=== PATIENT | female | born 1935 | race Caucasian/White ===

== ENCOUNTER 2017-02-20 07:15 | Emergency (ER) | payer MEDICARE, BC ==
[2017-02-20] MEDS ORDERED: MORPHINE SULFATE 10 MG/ML SOL IV ONE (07:41)
[2017-02-20] MEDS ORDERED: MORPHINE SULFATE 10 MG/ML SOL ONE (07:53)
[2017-02-20 07:59] LABS: BASOPHILS % (AUTO) 1 % (0-3); EOSINOPHILS % (AUTO) 8 % (0-9); HEMATOCRIT 43 % (35-47); MEAN CORPUSCULAR HGB CONC 32.8 gm/dl (32.0-36.0); MEAN CORPUSCULAR VOLUME 95 fL (81-99); MONOCYTES % (AUTO) 11.5 % (0-12); NEUTROPHILS % (AUTO) 56.1 % (37-80)
[2017-02-20 08:07] LABS: APPEARANCE,URINE Clear; BILIRUBIN,URINE NEGATIVE (NEGATIVE); COLOR,URINE Yellow; GLUCOSE, URINE (UA) NEGATIVE (NEGATIVE); KETONES,URINE NEGATIVE (NEGATIVE); LEUKOCYTE ESTERASE ,URINE NEGATIVE (NEGATIVE); NITRATE,URINE NEGATIVE (NEGATIVE); OCCULT BLOOD,URINE NEGATIVE (NEG-TRACE); UROBILINOGEN,URINE 0.2 (0.2-1.0 EU)
[2017-02-20 08:12] LABS: ALBUMIN 3.6 gm/dl (3.4-5.0); CALCIUM 9.9 mg/dl (8.5-10.1)
[2017-02-20 08:18] LABS: RBC,URINE NEG (0-3AV/HPF); WBC,URINE 0-1 (0-5AV/HPF)
[2017-02-20 08:43] VITALS: RESP 18; TEMP 98.8; O2SAT 95
[2017-02-20] MEDS ORDERED: SODIUM CHLORIDE 0.9% 1000ML 1,000 ML IV SCH (09:15)
[2017-02-20 09:30] VITALS: PULSE 79
[2017-02-20 09:50] VITALS: BP 113/80
== END 2017-02-20 10:53 | disposition short-term general hospital (02) | DRG 536 ==
LOC: ED 07:15
DX: S72.141A Displaced intertrochanteric fracture of right femur, initial encounter for closed fracture (principal); W01.0XXA Fall on same level from slipping, tripping and stumbling without subsequent striking against object, initial encounter
CPT/HCPCS: 36415; 72170; 73502; 80053; 81001; 85025; 99285; J2270

== ENCOUNTER 2017-03-22 09:53 | Outpatient (CLI) | payer MEDICARE, BC ==
[2017-02-20 08:43] VITALS: O2SAT 95
== END 2017-03-22 09:54 | disposition home or self-care (01) | DRG 561 ==
LOC: CONVCARE 09:53
PROVIDERS: ATTEND Orthopaedic Surgery
DX: S72.101D Unspecified trochanteric fracture of right femur, subsequent encounter for closed fracture with routine healing (principal)
CPT/HCPCS: 73502

== ENCOUNTER 2017-07-22 08:00 | Outpatient (CLI) | payer MEDICARE, BC ==
[2017-07-19 11:39] VITALS: O2SAT 98
== END 2017-07-22 08:01 | disposition home or self-care (01) | DRG 561 ==
LOC: CONVCARE 08:00
PROVIDERS: ATTEND Orthopaedic Surgery
DX: S72.141D Displaced intertrochanteric fracture of right femur, subsequent encounter for closed fracture with routine healing (principal)
CPT/HCPCS: 73502

== ENCOUNTER 2017-09-06 11:58 | Inpatient (IN) | payer MEDICARE, BC ==
[2017-09-06] MEDS ORDERED: SODIUM CHLORIDE 0.9% 500 ML 1,000 ML IV ONE (12:42)
[2017-09-06] MEDS: SODIUM CHLORIDE 0.9% FLUSH 10 ML SOL IV SCH ×2 (13:00→22:38)
[2017-09-06] MEDS: SODIUM CHLORIDE 0.9% 1000ML 1,000 ML IV SCH ×2 (15:10→18:37)
[2017-09-06] MEDS ORDERED: ENOXAPARIN 30 MG SOL SC SCH (16:30)
[2017-09-06] MEDS ORDERED: ACETAMINOPHEN 500 MG 500 MG TAB PO PRN (17:34)
[2017-09-06] MEDS ORDERED: TRAMADOL HYDROCHLORIDE 50 MG TAB PO PRN (17:34)
[2017-09-06] MEDS ORDERED: MAGNESIUM HYDROXIDE 30 ML SUS PO PRN (17:34)
[2017-09-06] MEDS ORDERED: MONTELUKAST SODIUM 10 MG TAB ONE (20:59)
[2017-09-06] MEDS ORDERED: MIRTAZAPINE 15 MG TAB PO SCH (21:00)
[2017-09-06] MEDS ORDERED: OXYBUTYNIN ER 15MG TER PO SCH (21:00)
[2017-09-06] MEDS ORDERED: MONTELUKAST SODIUM 5 MG CTB PO SCH (21:00)
[2017-09-06] MEDS ORDERED: LEVOTHYROXINE SODIUM 50 MCG TAB PO SCH (21:00)
[2017-09-06] MEDS: TRAMADOL HYDROCHLORIDE 50 MG TAB PO SCH (21:22)
[2017-09-06] MEDS: ACETAMINOPHEN 500 MG 500 MG TAB PO SCH (21:22)
[2017-09-06] MEDS: DOXYCYCLINE 100 MG TAB PO SCH (21:22)
[2017-09-06] MEDS: AMLODIPINE 5 MG TAB PO SCH (21:22)
[2017-09-06 23:54] VITALS: RESP 20
[2017-09-07] MEDS: SODIUM CHLORIDE 0.9% 1000ML 1,000 ML IV SCH ×2 (00:42→06:33)
[2017-09-07] MEDS: SODIUM CHLORIDE 0.9% FLUSH 10 ML SOL IV SCH ×2 (06:33→12:30)
[2017-09-07] MEDS ORDERED: LEVOTHYROXINE SODIUM 50 MCG TAB PO SCH (07:00)
[2017-09-07 07:24] LABS: BASOPHILS % (AUTO) 1 % (0-3); EOSINOPHILS % (AUTO) 1 % (0-9); HEMATOCRIT 32 % (35-47); MEAN CORPUSCULAR HGB CONC 35.3 gm/dl (32.0-36.0); MEAN CORPUSCULAR VOLUME 91 fL (81-99); MONOCYTES % (AUTO) 7.6 % (0-12); NEUTROPHILS % (AUTO) 73.4 % (37-80)
[2017-09-07 07:31] LABS: CALCIUM 8.3 mg/dl (8.5-10.1); POTASSIUM 4.5 mMol/L (3.5-5.1)
[2017-09-07] MEDS ORDERED: SODIUM CHLORIDE 0.9% 1000ML 1,000 ML IV SCH (08:17)
[2017-09-07] MEDS ORDERED: ATENOLOL 25 MG TAB PO SCH (09:00)
[2017-09-07] MEDS ORDERED: POLYETHYLENE GLYCOL 17 GM/1 TBS PDS PO SCH (09:00)
[2017-09-07] MEDS ORDERED: CETIRIZINE HYDROCHLORIDE 10 MG TAB PO SCH (09:00)
[2017-09-07] MEDS ORDERED: NICOTINE 7 MG PATCH TD SCH (09:00)
[2017-09-07] MEDS ORDERED: PANTOPRAZOLE SODIUM 40 MG ECT PO SCH (09:00)
[2017-09-07] MEDS ORDERED: ENOXAPARIN 30 MG SOL SC SCH (09:00)
[2017-09-07] MEDS ORDERED: PREDNISONE 5 MG TAB PO SCH (09:00)
[2017-09-07] MEDS ORDERED: DOCUSATE SODIUM 100 MG SGL PO SCH (09:15)
[2017-09-07] MEDS ORDERED: SENNOSIDES A AND B 8.6 MG TAB PO SCH (09:15)
[2017-09-07 09:29] VITALS: BP 130/82; PULSE 91; TEMP 97.4; O2SAT 98
[2017-09-07] MEDS: DOXYCYCLINE 100 MG TAB PO SCH (09:55)
[2017-09-07] MEDS: AMLODIPINE 5 MG TAB PO SCH (09:56)
[2017-09-07] MEDS: ACETAMINOPHEN 500 MG 500 MG TAB PO SCH (09:57)
[2017-09-07] MEDS: TRAMADOL HYDROCHLORIDE 50 MG TAB PO SCH ×2 (09:58→13:48)
[2017-09-07] MEDS ORDERED: MONTELUKAST SODIUM 10 MG TAB PO SCH (21:00)
== END 2017-09-07 15:35 | disposition other institution (70) | DRG 683 ==
LOC: ACUTE CARE 12:29
PROVIDERS: ADMIT Family Medicine; ATTEND Family Medicine
PROC: F01ZCZZ Transfer Assessment (ICD-10-PCS; principal; 2017-09-07)
PROC: F02Z1ZZ Dressing Assessment (ICD-10-PCS; 2017-09-07)
PROC: F02Z0ZZ Bathing/Showering Assessment (ICD-10-PCS; 2017-09-07)
PROC: F02Z3ZZ Grooming/Personal Hygiene Assessment (ICD-10-PCS; 2017-09-07)
DX: N17.9 Acute kidney failure, unspecified (principal); E87.1 Hypo-osmolality and hyponatremia; L97.424 Non-pressure chronic ulcer of left heel and midfoot with necrosis of bone; B95.62 Methicillin resistant Staphylococcus aureus infection as the cause of diseases classified elsewhere; E86.0 Dehydration; E89.0 Postprocedural hypothyroidism; I10 Essential (primary) hypertension
CPT/HCPCS: 36415; 80048; 85025; A6232; J1650

== ENCOUNTER 2017-10-21 12:37 | Emergency (ER) | payer MEDICARE, BC ==
[2017-10-21 13:21] LABS: BASOPHILS % (AUTO) 0 % (0-3); EOSINOPHILS % (AUTO) 0 % (0-9); HEMATOCRIT 41 % (35-47); MEAN CORPUSCULAR HGB CONC 33.1 gm/dl (32.0-36.0); MEAN CORPUSCULAR VOLUME 94 fL (81-99); MONOCYTES % (AUTO) 4.1 % (0-12); NEUTROPHILS % (AUTO) 85.7 % (37-80)
[2017-10-21] MEDS ORDERED: CLINDAMYCIN 150 MG/ML SOL ONE ×2 (13:27→13:30)
[2017-10-21] MEDS ORDERED: BUDESONIDE 0.5 MG/2 ML AMPUL.NEB ONE (13:27)
[2017-10-21 13:30] LABS: CALCIUM 9.2 mg/dl (8.5-10.1); GLOM FILT RATE 43 mL/min (>60); POTASSIUM 4.7 mMol/L (3.5-5.1); SODIUM 128 mMol/L (136-145)
[2017-10-21] MEDS: BUDESONIDE 0.25 MG/2 ML SUS INH ONE (13:40)
[2017-10-21] MEDS: CLINDAMYCIN 150 MG/ML 600 MG in SODIUM CHLORIDE 0.9% 100 ML 100 ML IV ONE (14:00)
[2017-10-21 15:04] VITALS: RESP 18; TEMP 97.2
[2017-10-21] MEDS ORDERED: GUAIFENESIN 200 MG/10 ML SOL ONE (15:12)
[2017-10-21] MEDS: GUAIFENESIN 200 MG/10 ML SOL PO ONE (15:15)
[2017-10-21 16:45] VITALS: BP 113/72; PULSE 65; O2SAT 97
== END 2017-10-21 15:55 | DRG 205 ==
LOC: ED 12:37
DX: T17.928A Food in respiratory tract, part unspecified causing other injury, initial encounter (principal); J69.0 Pneumonitis due to inhalation of food and vomit
CPT/HCPCS: 36415; 71020; 80048; 85025; 99284; J3490

== ENCOUNTER 2018-07-23 16:43 | Observation (INO) | payer MEDICARE, BC ==
[2018-07-23] MEDS ORDERED: SODIUM CHLORIDE 0.9% 1000ML 1,000 ML IV ONE (17:17)
[2018-07-23 17:41] LABS: BASOPHILS % (AUTO) 0 % (0-3); EOSINOPHILS % (AUTO) 0 % (0-9); HEMATOCRIT 41 % (35-47); HEMOGLOBIN 12.9 gm/dl (12.0-15.5); LYMPHOCYTES % (AUTO) 4.8 % (10-50); MEAN CORPUSCULAR HEMOGLOBIN 30.5 pg (27.0-32.0); MEAN CORPUSCULAR HGB CONC 31.6 gm/dl (32.0-36.0); MEAN CORPUSCULAR VOLUME 96 fL (81-99); MONOCYTES % (AUTO) 3.3 % (0-12); NEUTROPHILS % (AUTO) 91.6 % (37-80)
[2018-07-23 17:44] LABS: LACTIC ACID 2.3 mMol/L (0.0-2.0)
[2018-07-23 17:51] LABS: ALBUMIN 2.9 gm/dl (3.4-5.0); BILIRUBIN,TOTAL 0.3 mg/dl (0.2-1.0); CALCIUM 9.8 mg/dl (8.5-10.1); CARBON DIOXIDE 30.8 mEq/L (21-32); CREATININE 1.38 mg/dl (0.60-1.00); POTASSIUM 4.6 mMol/L (3.5-5.1); TOTAL PROTEIN 6.7 gm/dl (6.4-8.2)
[2018-07-23] MEDS ORDERED: SODIUM CHLORIDE 0.9% FLUSH 10 ML SOL IV PRN (17:58)
[2018-07-23] MEDS ORDERED: DEXTROSE 50% 1 VIAL SOL IV ONE ×2 (19:09→19:33)
[2018-07-23] MEDS ORDERED: INSULIN HUMAN REGULAR 100 U/ML SOL IV ONE (19:28)
[2018-07-23] MEDS ORDERED: INSULIN HUMAN REGULAR 100 U/ML SOL ONE (19:34)
[2018-07-23] MEDS ORDERED: MINERAL OIL ENEMA 1 EA NMA PR ONE (21:20)
[2018-07-23] MEDS ORDERED: LIDOCAINE HCL 2% GEL TOP PRN (21:21)
[2018-07-23] MEDS ORDERED: LIDOCAINE HCL 2% GEL TOP ONE (22:36)
[2018-07-23] MEDS ORDERED: MAGNESIUM HYDROXIDE PO PRN (23:54)
[2018-07-23] MEDS ORDERED: LOPERAMIDE 2 MG/15 ML PO PRN (23:54)
[2018-07-23] MEDS ORDERED: ACETAMINOPHEN 500 MG 500 MG TAB PO PRN (23:54)
[2018-07-23] MEDS ORDERED: BISACODYL 10 MG SUP PR PRN (23:54)
[2018-07-24] MEDS: SODIUM CHLORIDE 0.9% 1000ML 1,000 ML IV SCH ×3 (01:16→17:43)
[2018-07-24] MEDS: LEVOTHYROXINE SODIUM 50 MCG TAB PO SCH (06:14)
[2018-07-24 07:23] LABS: BASOPHILS % (AUTO) 0 % (0-3); EOSINOPHILS % (AUTO) 4 % (0-9); HEMATOCRIT 36 % (35-47); HEMOGLOBIN 11.6 gm/dl (12.0-15.5); LYMPHOCYTES % (AUTO) 11.3 % (10-50); MEAN CORPUSCULAR HEMOGLOBIN 31.4 pg (27.0-32.0); MEAN CORPUSCULAR HGB CONC 32.7 gm/dl (32.0-36.0); MEAN CORPUSCULAR VOLUME 96 fL (81-99); MONOCYTES % (AUTO) 7.2 % (0-12); NEUTROPHILS % (AUTO) 77.3 % (37-80)
[2018-07-24] MEDS ORDERED: APAP/HYDROCODONE 325/5 TAB PO PRN (08:57)
[2018-07-24] MEDS ORDERED: CHOLECALCIFEROL 1,000 IU TAB PO SCH (09:00)
[2018-07-24 09:06] LABS: CALCIUM 8.6 mg/dl (8.5-10.1); CARBON DIOXIDE 29.7 mEq/L (21-32); CREATININE 1.13 mg/dl (0.60-1.00); MAGNESIUM 3.6 mg/dl (1.8-2.4); POTASSIUM 3.7 mMol/L (3.5-5.1)
[2018-07-24] MEDS: LACTULOSE 10 GM/15 ML SOL PO SCH ×3 (10:27→21:04)
[2018-07-24] MEDS: ACETAMINOPHEN 500 MG 500 MG TAB PO SCH ×2 (10:34→21:04)
[2018-07-24] MEDS: ATENOLOL 25 MG TAB PO SCH (10:34)
[2018-07-24] MEDS: AMLODIPINE 5 MG TAB PO SCH ×2 (10:35→21:04)
[2018-07-24] MEDS: PREDNISONE 20 MG TAB PO SCH (10:35)
[2018-07-24] MEDS: ASCORBATE SOD PO SCH (10:55)
[2018-07-24] MEDS: VITE AC PO SCH (10:55)
[2018-07-24] MEDS: ARGININE PO SCH (10:55)
[2018-07-24] MEDS: MULTIVITAMIN2 1 EA TAB PO SCH (10:56)
[2018-07-24] MEDS: LIFITEGRAST LEFTEYE SCH ×3 (10:56→21:32)
[2018-07-24] MEDS: ASCORBIC ACID 500 MG TAB PO SCH (10:56)
[2018-07-24] MEDS: DOCUSATE SODIUM PO SCH (10:57)
[2018-07-24] MEDS: SENNOSIDES PO SCH (10:57)
[2018-07-24] MEDS: PANTOPRAZOLE SODIUM 40 MG ECT PO SCH (13:28)
[2018-07-24] MEDS: LACTOBACILLUS ACIDOPHILUS PO SCH (13:29)
[2018-07-24] MEDS ORDERED: OXYBUTYNIN ER 15MG TER PO SCH (21:00)
[2018-07-24] MEDS ORDERED: CELECOXIB 100 MG CAP PO SCH (21:00)
[2018-07-24] MEDS ORDERED: MIRTAZAPINE 15 MG TAB PO SCH (21:00)
[2018-07-24] MEDS ORDERED: TAFLUPROST LEFTEYE SCH (21:00)
[2018-07-24] MEDS ORDERED: MONTELUKAST SODIUM 5 MG CTB PO SCH (21:00)
[2018-07-25] MEDS: SODIUM CHLORIDE 0.9% 1000ML 1,000 ML IV SCH ×2 (01:32→11:56)
[2018-07-25] MEDS: PANTOPRAZOLE SODIUM 40 MG ECT PO SCH (06:00)
[2018-07-25] MEDS: LEVOTHYROXINE SODIUM 50 MCG TAB PO SCH (06:00)
[2018-07-25] MEDS ORDERED: ESOMEPRAZOLE MAGNESIUM 20 MG PO SCH (07:00)
[2018-07-25] MEDS: LACTULOSE 10 GM/15 ML SOL PO SCH ×2 (08:45→14:25)
[2018-07-25] MEDS: ACETAMINOPHEN 500 MG 500 MG TAB PO SCH (08:49)
[2018-07-25] MEDS: AMLODIPINE 5 MG TAB PO SCH (08:49)
[2018-07-25] MEDS: MULTIVITAMIN2 1 EA TAB PO SCH (08:49)
[2018-07-25] MEDS: ATENOLOL 25 MG TAB PO SCH (08:50)
[2018-07-25] MEDS: ASCORBIC ACID 500 MG TAB PO SCH (08:50)
[2018-07-25] MEDS: PREDNISONE 20 MG TAB PO SCH (08:51)
[2018-07-25] MEDS ORDERED: CETIRIZINE HYDROCHLORIDE 10 MG TAB PO SCH (09:00)
[2018-07-25] MEDS: ASCORBATE SOD PO SCH (09:10)
[2018-07-25] MEDS: VITE AC PO SCH (09:10)
[2018-07-25] MEDS: LACTOBACILLUS ACIDOPHILUS PO SCH (09:10)
[2018-07-25] MEDS: ARGININE PO SCH (09:10)
[2018-07-25] MEDS: LIFITEGRAST LEFTEYE SCH (09:11)
[2018-07-25 09:24] LABS: CALCIUM 8.3 mg/dl (8.5-10.1); CARBON DIOXIDE 20.9 mEq/L (21-32); CREATININE 0.84 mg/dl (0.60-1.00); MAGNESIUM 2.3 mg/dl (1.8-2.4); POTASSIUM 3.4 mMol/L (3.5-5.1)
[2018-07-25] MEDS ORDERED: FUROSEMIDE 20mg SOL IV ONE (10:03)
[2018-07-25 10:14] VITALS: RESP 24
[2018-07-25] MEDS: POTASSIUM CHLORIDE 10 MEQ TER PO SCH ×2 (10:55→13:39)
[2018-07-25] MEDS: DOCUSATE SODIUM PO SCH (12:36)
[2018-07-25] MEDS: SENNOSIDES PO SCH (12:36)
[2018-07-25 16:33] VITALS: BP 149/79; PULSE 75; TEMP 97.5; O2SAT 95
[2018-07-25 16:35] LABS: CARBON DIOXIDE 22.9 mEq/L (21-32); CREATININE 1.04 mg/dl (0.60-1.00); POTASSIUM 4.3 mMol/L (3.5-5.1)
[2018-07-25] MEDS ORDERED: MONTELUKAST SODIUM 10 MG TAB PO SCH (21:00)
[2018-07-26] MEDS ORDERED: PREDNISONE 10 MG TAB PO SCH (09:00)
== END 2018-07-25 16:45 | DRG 392 ==
LOC: ED 16:43 → ACUTE CARE 20:32 → UNDOADMOB 20:32 → ACUTE CARE 20:55
PROVIDERS: ADMIT Emergency Medicine; ATTEND Emergency Medicine
DX: K59.00 Constipation, unspecified (principal); N17.9 Acute kidney failure, unspecified; K62.89 Other specified diseases of anus and rectum; E83.41 Hypermagnesemia; E86.0 Dehydration; R74.0 Nonspecific elevation of levels of transaminase and lactic acid dehydrogenase [LDH]; F03.90 Unspecified dementia, unspecified severity, without behavioral disturbance, psychotic disturbance, mood disturbance, and anxiety; I10 Essential (primary) hypertension
CPT/HCPCS: 36415; 71045; 74176; 80048; 80053; 82962; 83735; 84100; 85025; 96365; 96366; 96374; 96375; 99219; 99285; J1815; J1940; A6232; A9270-GY

== ENCOUNTER 2018-08-21 17:30 | Inpatient (IN) | payer MEDICARE, BC ==
[2018-08-21] MEDS ORDERED: CEFTRIAXONE 1 GM PDS 1 GM in SODIUM CHLORIDE 0.9% 50 ML 50 ML IV ONE (18:21)
[2018-08-21 18:37] LABS: BASOPHILS % (AUTO) 0 % (0-3); EOSINOPHILS % (AUTO) 0 % (0-9); HEMATOCRIT 34 % (35-47); HEMOGLOBIN 10.9 gm/dl (12.0-15.5); LYMPHOCYTES % (AUTO) 5.7 % (10-50); MEAN CORPUSCULAR HEMOGLOBIN 30.4 pg (27.0-32.0); MEAN CORPUSCULAR HGB CONC 32.2 gm/dl (32.0-36.0); MEAN CORPUSCULAR VOLUME 94 fL (81-99); MONOCYTES % (AUTO) 4.2 % (0-12); NEUTROPHILS % (AUTO) 89.6 % (37-80)
[2018-08-21] MEDS ORDERED: CEFTRIAXONE 1 GM PDS ONE (18:55)
[2018-08-21 19:12] LABS: CALCIUM 8.4 mg/dl (8.5-10.1); CARBON DIOXIDE 23.7 mEq/L (21-32); CREATININE 1.25 mg/dl (0.60-1.00); CRP INFLAMMATORY 3.25 mg/dl (0.00-0.33); POTASSIUM 4.7 mMol/L (3.5-5.1)
[2018-08-21] MEDS: SODIUM CHLORIDE 0.9% 1000ML 1,000 ML IV SCH (22:26)
[2018-08-21] MEDS ORDERED: BISACODYL 10 MG SUP PR PRN (22:45)
[2018-08-21] MEDS ORDERED: APAP/HYDROCODONE 1 EACH TABLET PO PRN (22:45)
[2018-08-21] MEDS ORDERED: CEFAZOLIN SODIUM 1 GM PDS ONE (23:22)
[2018-08-21] MEDS: CEFAZOLIN (PREMIX) 1 GM SOL IV SCH (23:33)
[2018-08-21] MEDS: SODIUM CHLORIDE 0.9% FLUSH 10 ML SOL IV SCH (23:38)
[2018-08-22] MEDS ORDERED: CEFAZOLIN SODIUM 1 GM PDS ONE ×4 (05:03→22:56)
[2018-08-22] MEDS: CEFAZOLIN (PREMIX) 1 GM SOL IV SCH (05:10)
[2018-08-22] MEDS: SODIUM CHLORIDE 0.9% 1000ML 1,000 ML IV SCH ×3 (06:39→18:19)
[2018-08-22] MEDS: SODIUM CHLORIDE 0.9% FLUSH 10 ML SOL IV SCH ×2 (07:04→15:18)
[2018-08-22 08:29] LABS: HEMATOCRIT 32 % (35-47); HEMOGLOBIN 10.3 gm/dl (12.0-15.5); MEAN CORPUSCULAR HEMOGLOBIN 30.8 pg (27.0-32.0); MEAN CORPUSCULAR HGB CONC 32.4 gm/dl (32.0-36.0); MEAN CORPUSCULAR VOLUME 95 fL (81-99)
[2018-08-22] MEDS ORDERED: FLEET ENEMA PR PRN (08:46)
[2018-08-22 08:50] LABS: BAND NEUTROPHILS % (MANUAL) 9 %; LYMPHOCYTES % (MANUAL) 14 % (10-50); MONOCYTES % (MANUAL) 2 % (0-12); NEUTROPHILS % (MANUAL) 73 % (37-80)
[2018-08-22] MEDS: ATENOLOL 25 MG TAB PO SCH (08:50)
[2018-08-22] MEDS: ACETAMINOPHEN 500 MG 500 MG TAB PO SCH ×2 (08:50→20:30)
[2018-08-22 08:51] LABS: BASOPHILS % (MANUAL) 1 % (0-3); EOSINOPHILS % (MANUAL) 1 % (0-9); NORMAL RBCS PRESENT
[2018-08-22 08:58] LABS: CALCIUM 8.5 mg/dl (8.5-10.1); CARBON DIOXIDE 23.1 mEq/L (21-32); CREATININE 1.07 mg/dl (0.60-1.00); POTASSIUM 4.1 mMol/L (3.5-5.1)
[2018-08-22] MEDS ORDERED: MAGNESIUM HYDROXIDE 30 ML SUS PO PRN (08:59)
[2018-08-22] MEDS: POLYETHYLENE GLYCOL 17 GM/1 TBS PDS PO SCH (09:41)
[2018-08-22] MEDS: CHOLECALCIFEROL 1,000 IU TAB PO SCH (09:41)
[2018-08-22] MEDS: AMLODIPINE 5 MG TAB PO SCH ×2 (09:42→20:31)
[2018-08-22] MEDS: PANTOPRAZOLE SODIUM 40 MG ECT PO SCH (09:42)
[2018-08-22] MEDS: LEVOTHYROXINE SODIUM 50 MCG TAB PO SCH (09:43)
[2018-08-22] MEDS: PREDNISONE 5 MG TAB PO SCH (09:44)
[2018-08-22] MEDS: [UNRECOGNIZED DRUG - OTHER] PO SCH ×3 (10:38→20:31)
[2018-08-22] MEDS: SUPPLEMENT PO SCH ×3 (10:38→20:31)
[2018-08-22] MEDS ORDERED: SODIUM CHLORIDE 0.9% 50 ML 50 ML IV ONE ×3 (11:03→22:56)
[2018-08-22] MEDS: CEFAZOLIN SODIUM 1 GM PDS 1 GM in SODIUM CHLORIDE 0.9% 50 ML 50 ML IV SCH ×3 (11:12→23:11)
[2018-08-22] MEDS: LIFITEGRAST LEFTEYE SCH ×2 (14:21→20:31)
[2018-08-22] MEDS: CELECOXIB 100 MG CAP PO SCH (20:31)
[2018-08-22] MEDS: MIRTAZAPINE 15 MG TAB PO SCH (20:31)
[2018-08-22] MEDS: TAFLUPROST LEFTEYE SCH (20:32)
[2018-08-23] MEDS: SODIUM CHLORIDE 0.9% FLUSH 10 ML SOL IV SCH ×3 (01:24→15:51)
[2018-08-23] MEDS: SODIUM CHLORIDE 0.9% 1000ML 1,000 ML IV SCH (01:40)
[2018-08-23] MEDS ORDERED: CEFAZOLIN SODIUM 1 GM PDS ONE (04:30)
[2018-08-23] MEDS ORDERED: SODIUM CHLORIDE 0.9% 50 ML 50 ML IV ONE (04:30)
[2018-08-23] MEDS: CEFAZOLIN SODIUM 1 GM PDS 1 GM in SODIUM CHLORIDE 0.9% 50 ML 50 ML IV SCH (05:04)
[2018-08-23] MEDS: PANTOPRAZOLE SODIUM 40 MG ECT PO SCH (06:12)
[2018-08-23] MEDS: LEVOTHYROXINE SODIUM 50 MCG TAB PO SCH (06:12)
[2018-08-23 07:11] LABS: BASOPHILS % (AUTO) 0 % (0-3); EOSINOPHILS % (AUTO) 2 % (0-9); HEMATOCRIT 28 % (35-47); HEMOGLOBIN 8.9 gm/dl (12.0-15.5); LYMPHOCYTES % (AUTO) 10.8 % (10-50); MEAN CORPUSCULAR HEMOGLOBIN 30.3 pg (27.0-32.0); MEAN CORPUSCULAR HGB CONC 32.2 gm/dl (32.0-36.0); MEAN CORPUSCULAR VOLUME 94 fL (81-99); MONOCYTES % (AUTO) 5.2 % (0-12); NEUTROPHILS % (AUTO) 81.3 % (37-80)
[2018-08-23 07:12] LABS: CALCIUM 7.6 mg/dl (8.5-10.1); CARBON DIOXIDE 21.9 mEq/L (21-32); CREATININE 0.85 mg/dl (0.60-1.00); CRP INFLAMMATORY 3.6 mg/dl (0.00-0.33); POTASSIUM 3.5 mMol/L (3.5-5.1)
[2018-08-23] MEDS: [UNRECOGNIZED DRUG - OTHER] PO SCH ×4 (09:00→20:04)
[2018-08-23] MEDS: SUPPLEMENT PO SCH ×4 (09:00→20:04)
[2018-08-23] MEDS: LIFITEGRAST LEFTEYE SCH ×2 (09:00→20:01)
[2018-08-23] MEDS: POLYETHYLENE GLYCOL 17 GM/1 TBS PDS PO SCH (09:01)
[2018-08-23] MEDS: AMLODIPINE 5 MG TAB PO SCH ×2 (09:01→20:05)
[2018-08-23] MEDS: ATENOLOL 25 MG TAB PO SCH (09:02)
[2018-08-23] MEDS: PREDNISONE 5 MG TAB PO SCH (09:02)
[2018-08-23] MEDS: ACETAMINOPHEN 500 MG 500 MG TAB PO SCH ×2 (09:02→20:09)
[2018-08-23] MEDS: CEFDINIR 300 MG CAP PO SCH ×2 (11:41→20:04)
[2018-08-23] MEDS: TAFLUPROST LEFTEYE SCH (20:02)
[2018-08-23] MEDS: MIRTAZAPINE 15 MG TAB PO SCH (20:08)
[2018-08-23] MEDS: CELECOXIB 100 MG CAP PO SCH (20:13)
[2018-08-24] MEDS: SODIUM CHLORIDE 0.9% FLUSH 10 ML SOL IV SCH ×2 (00:24→06:30)
[2018-08-24 00:34] VITALS: TEMP 96.7
[2018-08-24] MEDS: LEVOTHYROXINE SODIUM 50 MCG TAB PO SCH (06:30)
[2018-08-24] MEDS: PANTOPRAZOLE SODIUM 40 MG ECT PO SCH (06:30)
[2018-08-24 07:13] LABS: BASOPHILS % (AUTO) 0 % (0-3); EOSINOPHILS % (AUTO) 2 % (0-9); HEMATOCRIT 30 % (35-47); HEMOGLOBIN 9.6 gm/dl (12.0-15.5); LYMPHOCYTES % (AUTO) 11.3 % (10-50); MEAN CORPUSCULAR HEMOGLOBIN 30.3 pg (27.0-32.0); MEAN CORPUSCULAR VOLUME 95 fL (81-99); MONOCYTES % (AUTO) 4.8 % (0-12); NEUTROPHILS % (AUTO) 81.5 % (37-80)
[2018-08-24 07:27] LABS: CALCIUM 8.7 mg/dl (8.5-10.1); CARBON DIOXIDE 22.3 mEq/L (21-32); CREATININE 0.78 mg/dl (0.60-1.00); CRP INFLAMMATORY 2.31 mg/dl (0.00-0.33); POTASSIUM 3.7 mMol/L (3.5-5.1)
[2018-08-24 07:40] VITALS: BP 108/72; PULSE 77; RESP 20; O2SAT 95
[2018-08-24] MEDS: POLYETHYLENE GLYCOL 17 GM/1 TBS PDS PO SCH (08:27)
[2018-08-24] MEDS: ATENOLOL 25 MG TAB PO SCH (08:28)
[2018-08-24] MEDS: AMLODIPINE 5 MG TAB PO SCH (08:28)
[2018-08-24] MEDS: CHOLECALCIFEROL 1,000 IU TAB PO SCH (08:28)
[2018-08-24] MEDS: ACETAMINOPHEN 500 MG 500 MG TAB PO SCH (08:29)
[2018-08-24] MEDS: CEFDINIR 300 MG CAP PO SCH (08:29)
[2018-08-24] MEDS: PREDNISONE 5 MG TAB PO SCH (08:29)
[2018-08-24] MEDS: LIFITEGRAST LEFTEYE SCH (08:31)
== END 2018-08-24 10:25 | DRG 603 ==
LOC: ED 17:30 → UNDOADMIN 20:34 → ACUTE CARE 20:34
PROVIDERS: ADMIT Family Medicine; ATTEND Family Medicine
DX: L03.114 Cellulitis of left upper limb (principal); M86.9 Osteomyelitis, unspecified; K92.1 Melena; E86.0 Dehydration; S41.112A Laceration without foreign body of left upper arm, initial encounter; B95.62 Methicillin resistant Staphylococcus aureus infection as the cause of diseases classified elsewhere; F03.90 Unspecified dementia, unspecified severity, without behavioral disturbance, psychotic disturbance, mood disturbance, and anxiety; L97.522 Non-pressure chronic ulcer of other part of left foot with fat layer exposed; S61.411A Laceration without foreign body of right hand, initial encounter; K59.00 Constipation, unspecified; I10 Essential (primary) hypertension; E03.9 Hypothyroidism, unspecified
CPT/HCPCS: 36415; 74019; 74177; 80048; 85007; 85025; 85027; 87040; 96365; 99070; 99223; 99231; 99283; J0690; J0696; Q9967; A6232; A9270-GY